=== PATIENT | female | born 1970 | race Caucasian/White ===

== ENCOUNTER → 2023-08-30 10:55 | Outpatient (REF) | payer OTHER, SELFPAY | LOC: WDC 10:55 | PROVIDERS: ATTENDING PHYSICIAN Obstetrics & Gynecology | DX: R92.2 Inconclusive mammogram (principal) | CPT/HCPCS: 76641 ==

== ENCOUNTER → 2023-09-07 18:41 | Outpatient (REF) | payer OTHER, SELFPAY | LOC: WDC 18:41 | PROVIDERS: ATTENDING PHYSICIAN Obstetrics & Gynecology; FAMILY PHYSICIAN Family Medicine | DX: Z12.31 Encounter for screening mammogram for malignant neoplasm of breast (principal) | CPT/HCPCS: 77063; 77067 ==

== ENCOUNTER → 2024-10-01 19:29 | Outpatient (REF) | payer OTHER, SELFPAY | LOC: WDC 19:29 | PROVIDERS: ATTENDING PHYSICIAN Obstetrics & Gynecology; FAMILY PHYSICIAN Family Medicine | DX: Z12.31 Encounter for screening mammogram for malignant neoplasm of breast (principal) | CPT/HCPCS: 77063; 77067 ==

== ENCOUNTER 2025-02-25 06:23 | Day surgery (SDC) | payer OTHER, SELFPAY ==
[2025-02-19 09:20] LABS: Hematocrit 37.7 % (37.0-47.0); Hemoglobin 13.0 g/dL (12.0-16.0); Mean Corp Hgb Conc. 34.5 g/dL (33.0-37.0); Mean Corpuscular Volume 91.3 fL (81.0-99.0); Platelet Count 297 10^3/uL (130-400); Red Cell Dist. Width 11.6 % (11.5-14.5)
[2025-02-19 10:16] LABS: Blood Urea Nitrogen 15 mg/dl (7-17); Calcium 9.2 mg/dl (8.4-10.2); Carbon Dioxide 30 mmol/L (22-30); Chloride 104 mmol/L (98-107); Glucose 83 mg/dl (70-99); Potassium 4.3 mmol/L (3.5-5.1); Sodium 139 mmol/L (135-145); eGFR > 60.00
[2025-02-19 13:37] VITALS: BMI 25.3
[2025-02-25 09:20] VITALS: BP 109/73
[2025-02-25] MEDS: NORMOSOL-R/PLASMALYTE-A 1000 IV (09:27)
[2025-02-25 09:28] VITALS: BMI 25.3
[2025-02-25 09:38] VITALS: BP 109/73
[2025-02-25] MEDS: TYLENOL 1000 MG PO (09:48)
--- NOTE | 2025-02-25 13:27 | W.IMMPOSTOP ---
Addendum entered and electronically signed by Sima Gill DO 02/25/25 22:58:
Anesthesia TIVA Dr. Justice
Original Note:
Surgical Immed Post Op Note
-
Primary Surgeon: Sima Gill DO
Assisting Surgeon: none
Pre-op Diagnosis: Postmenopausal bleeding; thickened endometrial lining on US
Post-op Diagnosis: same; endometrial polyp
Procedure Performed: hysteroscopy D&C myosure polypectomy
Anesthesia Type: MAC with IV sedation
Specimen / Cultures: 1. endocervical curettings 2. endometrial curettings with resected polyp (in sock)
Estimated Blood Loss: 5ml
Fluid deficit: 350mL NSS
Complications: none
Operative Findings: Enlarged uterus with irregular contour c/w hx of uterine fibroids. Bilateral tubal ostia seen. Endometrial polyp noted at fundus, resected completely.
Counts correct times 2.
Stable to recovery.
Counts correct times 2.
[2025-02-25 13:36] VITALS: BP 111/89
[2025-02-25 13:48] VITALS: BP 97/65
[2025-02-25 14:00] VITALS: BP 90/61
[2025-02-25 14:15] VITALS: BP 91/54
== END 2025-02-25 14:33 | disposition home or self-care (01) ==
LOC: SDS 06:23
PROVIDERS: ATTENDING PHYSICIAN Obstetrics & Gynecology; FAMILY PHYSICIAN Family Medicine
DX: N95.0 Postmenopausal bleeding (principal); N84.0 Polyp of corpus uteri; D26.1 Other benign neoplasm of corpus uteri
CPT/HCPCS: 58558; 36415; 80048; 85027; 86850; 86900; 86901; 88305; 93005